=== PATIENT | male | born 1955 | race Asian ===

== ENCOUNTER 2021-09-02 13:52 | Outpatient (CLI) | payer MEDICARE, BC | END 2021-09-02 13:53 | disposition home or self-care (01) | LOC: CSHMRI 13:52 | PROVIDERS: ATTEND Urology | DX: C61 Malignant neoplasm of prostate (principal); M54.9 Dorsalgia, unspecified; G89.29 Other chronic pain; M47.817 Spondylosis without myelopathy or radiculopathy, lumbosacral region | CPT/HCPCS: 72148; 72197 ==

== ENCOUNTER 2023-02-04 14:14 | Outpatient (CLI) | payer MEDICARE, BC | END 2023-02-04 14:15 | disposition home or self-care (01) | LOC: CSHMRI 14:14 | PROVIDERS: ATTEND Psychiatry & Neurology Neurology | DX: M48.02 Spinal stenosis, cervical region (principal); M47.816 Spondylosis without myelopathy or radiculopathy, lumbar region; M25.78 Osteophyte, vertebrae | CPT/HCPCS: 72141 ==

== ENCOUNTER 2025-04-16 08:43 | Outpatient (CLI) | payer MEDICARE, BC | END 2025-04-16 08:44 | disposition home or self-care (01) | LOC: CSHULT 08:43 | PROVIDERS: ATTEND Family Medicine | DX: N28.1 Cyst of kidney, acquired (principal); K76.89 Other specified diseases of liver | CPT/HCPCS: 76700 ==